=== PATIENT | female | born 1995 | race Caucasian/White ===

== ENCOUNTER 2022-10-08 13:15 | Emergency (ER) | payer BC, SELFPAY ==
--- OUTSIDE RECORDS SUMMARY | 2022-10-08 13:20 | XMS REPORT | Continuity of Care Document ---
:1995 Author Organization [facility] t Address [address] [place] [address] Care Team Providers Name Role Phone PCP, PATIENT DOES NOT HAVE A Primary Care Physician Unavaila ANA Griggs Attending Clinician Unavailable JERRY ALEMAN Attending Clinician Unavailable Jerry Aburto Attending Clinician PHAN CHRISTIANSEN Attending Clinician Unavailable Phan Ba Attending Clinician Adina Dupree MD Attending Clinician Lab, [facility] Pob I Attending Clinician Unavailable Mary Aguilera Attending Clinician Priscila Jackson MD Attending Clinician Wanda Mcmillan PA-C Attending Clinician WANDA MCMILLAN Attending Clinician Unavailable JERRY ALEMAN Admitting Clinician Unavailable Problems Condition Condition Condition Status Onset Resolution Last Treating Co mments Source Name Details Category Date Date Treatment Clinician Date Obesity Obesity Disease Active Univers (BMI (BMI 1-24 ity of 30-39.9) 30-39.9) 00:00: [place] 00 Medical Branch High risk High risk Disease Active Uni vers 6-22 ity of due to due to 00:00: [place] smoking, smoking, 00 Medica l antepartum antepartum Br anch History of History of Disease Active U nivers breast breast 6-22 ity of abscess abscess 00:00: [place] 00 Medical Branch Breast Breast Disease Active 2016-04 Univers abscess of abscess of 0-07 it y of female female 00:00: 00 Medical Branch Left Left Disease Active Univers breast breast 9-14 ity of abscess abscess 00:00: [place] 00 Medical Branch Other Other Disease Active Univers general general 6-15 ity of counseling [place] advice and advice 00 Me dical for for Branch contracept contracept angelica angelica management management Lump or Lump or Disease Active Overview: Univ ers mass in mass in 08 Formattin ity o f breast breast 00:00: g of this note Medical might be Branch different from the original. 2 benign cysts noted on 09/29/16 usg Breast Breast Disease Active Univers pain pain 2-03 ity of 00:00: [place] 00 Medical [place] Irregular Irregular Disease Active Uni vers menstrual menstrual 8-02 ity of cycle cycle 00:00: [facility] Allergies, Adverse Reactions, Alerts Allergy Allergy Status Severity Reaction(s) Onset Inactive Treating Comm ents Source Name Type Date Date Clinician NO KNOWN Drug Active Univers ALLERGIE Class ity of S [facility] Social History Social Habit Start Date Stop Date Quantity Comments Source History SDOH University o f Alcohol Frequency [facility] ed[facility] Branch History SDOH University o f Alcohol Std [place] Medical Drinks Branch History SDOH University o f Alcohol Binge [place] Medic al Branch History of Occasional University of tobacco use tobacco smoker [place] Med ical Branch Exposure to 2021-12-22 2022-01-01 Not sure University of SARS-CoV-2 00:00:00 15:34:00 [facility] (event) Branch Alcohol intake 2022-01-01 2022-01-01 0 /d University of 00:00:00 00:00:00 [facility] Tobacco Comment 2017-09-09 2017-09-09 Vape Universit y of 00:00:00 00:00:00 [facility] Tobacco use and 2017-09-09 2017-09-09 Smokeless tobacco Un iversity of exposure 00:00:00 00:00:00 non-user [facility] Alcohol Comment 2016-09-15 2016-09-15 social drinker Unive rsity of 00:00:00 00:00:00 [facility] Sex [birth year] At [birth year] LISA Hernandez 00:00:00 00:00:00 Medical Center Smoking Status Start Date Stop Date Source Occasional tobacco smoker 2017-09-09 00:00:00 Un iversity of [facility] Medications Ordered Filled Start Stop Current Ordering Indication Dosage Frequency Signature Comments Components Source Medication Medication Date Date Medication? Clinician (SIG) Name Name iopamidol 2021- No [id number] 70mL 70 mL, Un tisha (ISOVUE 01-01 Intravenou ity o f 370-500 mL) 22:30: 21:31 s, ONCE, 1 [place] injection 00 :00 dose, On Medica l 70 mL Fri Branch 01/01/22 at 1730, Routine pantoprazol No 40mg 40 mg, Uni vers e 05-10 Slow IV ity of (PROTONIX) 02:15: 01:18 Push, [place] injection 00 :00 ONCE, 1 Medical 40 mg dose, On Branch 05/09/21 at 2015 maalox:diph No 15mL 15 mL, Uni vers enhydrAMINE 05-10 Oral, ity of :lidocaine 01:00: 00:46 ONCE, 1 [place] as 2 % viscous 00 :00 dose, On Medi bailey 1:1:1 05/09/21 Branch (FIRST-MOUT at 1900, HWASH BLM) Routine oral suspension 15 mL ketorolac 2021- No 30mg 30 mg, Unive rs (TORADOL) 05-10 Slow IV ity of injection 01:00: 00:45 Push, [place] 30 mg 00 :00 ONCE, 1 Medical dose, On Branch 05/09/21 at 1900, CLAIR NaCl 0.9% 2021- No 1000mL at 999 Uni vers (NS) bolus 05-09-06 mL/hr, ity of infusion 23:45: 01:25 1,000 mL, Eliazar as 1,000 mL 00 :00 IV Medical Infusion, Branch ONCE, 1 dose, On 05/09/21 at 1745, CLAIR pantoprazol Yes [id number] 40mg Take 1 U nivers e 40 mg EC 2-05 tablet by ity of tablet 00:00: mouth [place] 00 daily. Medical Branch pantoprazol Yes [id number] 40mg Take 1 U nivers e 40 mg EC 2-05 tablet by ity of tablet 00:00: mouth [place] 00 daily. Medical Branch 2019-0 Yes Take by Univer s VIT 2-20 mouth. ity of CALC,IRON,F 17:11: [place] [id number] Medical ( Branch VITAMIN ORAL) aspirin/bob 0 Yes Take by Uni vers icylamide/c 2-20 mouth. ity of affeine (BC 17:11: [place] HEADACHE 54 Medical POWDER Branch ORAL) 0 Yes Take by Univer s VIT 2-20 mouth. ity of CALC,IRON,F 17:11: [place] [address] Medical ( Branch VITAMIN ORAL) aspirin/bob 0 Yes Take by Uni vers icylamide/c 2-20 mouth. ity of affeine (BC 17:11: [place] HEADACHE 54 Medical POWDER Branch ORAL) Yes Take by Univer s VIT 2-20 mouth. ity of CALC,IRON,F 17:11: [place] [address] Medical ( Branch VITAMIN ORAL) aspirin/bob 0 Yes Take by Uni vers icylamide/c 2-20 mouth. ity of affeine (BC 17:11: [place] HEADACHE 54 Medical POWDER Branch ORAL) 0 Yes Take by Univer s VIT 2-20 mouth. ity of CALC,IRON,F 17:11: [place] [address] Medical ( Branch VITAMIN ORAL) aspirin/bob 0 Yes Take by Uni vers icylamide/c 2-20 mouth. ity of affeine (BC 17:11: [place] HEADACHE 54 Medical POWDER Branch ORAL) [id number] Yes Take by Univer s VIT 2-20 mouth. ity of CALC,IRON,F 17:11: [place] [address] Medical ( Branch VITAMIN ORAL) aspirin/bob 2018-0 Yes Take by Uni vers icylamide/c 2-20 mouth. ity of affeine (BC 17:11: [place] HEADACHE 54 Medical POWDER Branch ORAL) [id number] Yes Take by Univer s VIT 2-20 mouth. ity of CALC,IRON,F 11:11: [place] [address] Medical ( Branch VITAMIN ORAL) aspirin/bob 2019-0 Yes Take by Uni vers icylamide/c 2-20 mouth. ity of affeine (BC 11:11: [place] HEADACHE 54 Medical POWDER Branch ORAL) 2019-0 Yes Take by Univer s VIT 2-20 mouth. ity of CALC,IRON,F 11:11: [place] OLIC 54 Medical ( Branch VITAMIN ORAL) aspirin/bob 2019-0 Yes Take by Uni vers icylamide/c 2-20 mouth. ity of affeine (BC 11:11: [place] HEADACHE 54 Medical POWDER Branch ORAL) ferrous 2019- Yes [id number] 325mg Take 1 Uni vers sulfate 325 1-26 tablet by ity of mg (65 mg 00:00: mouth 2 [place] iron) 00 (two) Medical tablet times Branch daily. ibuprofen Yes [id number] 600mg Take 1 U nivers 600 mg 1-26 tablet by ity of tablet 00:00: mouth [place] 00 every 6 Medical (six) Branch hours as needed for Pain (scale 1-3) or Pain (scale 4-6) (Pain). Take with food or milk. ferrous Yes [id number] 325mg Take 1 Uni vers sulfate 325 1-26 tablet by ity of mg (65 mg 00:00: mouth 2 [place] iron) 00 (two) Medical tablet times Branch daily. ibuprofen 0 Yes [id number] 600mg Take 1 U nivers 600 mg 1-26 tablet by ity of tablet 00:00: mouth [place] 00 every 6 Medical (six) Branch hours as needed for Pain (scale 1-3) or Pain (scale 4-6) (Pain). Take with food or milk. ferrous 2018-0 Yes [id number] 325mg Take 1 Uni vers sulfate 325 1-26 tablet by ity of mg (65 mg 00:00: mouth 2 [place] iron) 00 (two) Medical tablet times Branch daily. ibuprofen 0 Yes [id number] 600mg Take 1 U nivers 600 mg 1-26 tablet by ity of tablet 00:00: mouth [place] 00 every 6 Medical (six) Branch hours as needed for Pain (scale 1-3) or Pain (scale 4-6) (Pain). Take with food or milk. ferrous Yes [id number] 325mg Take 1 Uni vers sulfate 325 1-26 tablet by ity of mg (65 mg 00:00: mouth 2 [place] iron) 00 (two) Medical tablet times Branch daily. ibuprofen Yes [id number] 600mg Take 1 U nivers 600 mg 1-26 tablet by ity of tablet 00:00: mouth [place] 00 every 6 Medical (six) Branch hours as needed for Pain (scale 1-3) or Pain (scale 4-6) (Pain). Take with food or milk. ferrous Yes [id number] 325mg Take 1 Uni vers sulfate 325 1-26 tablet by ity of mg (65 mg 00:00: mouth 2 [place] iron) 00 (two) Medical tablet times Branch daily. ibuprofen Yes [id number] 600mg Take 1 U nivers 600 mg 1-26 tablet by ity of tablet 00:00: mouth [place] 00 every 6 Medical (six) Branch hours as needed for Pain (scale 1-3) or Pain (scale 4-6) (Pain). Take with food or milk. ferrous Yes [id number] 325mg Take 1 Uni vers sulfate 325 1-26 tablet by ity of mg (65 mg 00:00: mouth 2 [place] iron) 00 (two) Medical tablet times Branch daily. ibuprofen Yes [id number] 600mg Take 1 U nivers 600 mg 1-26 tablet by ity of tablet 00:00: mouth [place] 00 every 6 Medical (six) Branch hours as needed for Pain (scale 1-3) or Pain (scale 4-6) (Pain). Take with food or milk. ferrous Yes [id number] 325mg Take 1 Uni vers sulfate 325 1-26 tablet by ity of mg (65 mg 00:00: mouth 2 [place] iron) 00 (two) Medical tablet times Branch daily. ibuprofen Yes [id number] 600mg Take 1 U nivers 600 mg 1-26 tablet by ity of tablet 00:00: mouth [place] 00 every 6 Medical (six) Branch hours as needed for Pain (scale 1-3) or Pain (scale 4-6) (Pain). Take with food or milk. Immunizations Ordered Filled Immunization Date Status Comments [facility] e Immunization Name Name Covid-19 Vaccine 2020-06-[address] [facility] MRNA (PF) 12yr+ 00:00:00 Medical C enter (Pfizer/cottonTracks)(I [id number]) Covid-19 Vaccine 2020-05-[address] [facility] MRNA (PF) 12yr+ 00:00:00 Medical C enter (Pfizer/BioNTech)(I [id number]) TDAP 2018-02-20 Completed University of 00:00:00 [place] [facility] [place] TDAP 2018-02-20 Completed University of 00:00:00 [place] [facility] [place] TDAP 2018-02-20 Completed University of 00:00:00 [place] [facility] [place] TDAP 2018-02-20 Completed University of 00:00:00 [place] [facility] [place] TDAP 2018-02-20 Completed University of 00:00:00 [place] [facility] [place] TDAP 2018-02-20 Completed University of 00:00:00 [facility] TDAP 2018-02-20 Completed University of 00:00:00 [facility] Influenza Virus 2018-01-25 Completed Universit y of Vaccine Quad .5 mL 00:00:[address] [facility] 6+ MO Branch Influenza Virus 2018-01-25 Completed Universit y of Vaccine Quad .5 mL 00:00:[address] [facility] 6+ MO Branch Influenza Virus 2018-01-25 Completed Universit y of Vaccine Quad .5 mL 00:00:[address] [facility] 6+ MO Branch Influenza Virus 2018-01-25 Completed Universit y of Vaccine Quad .5 mL 00:00:00 [place] [facility] 6+ MO Branch Influenza Virus 2018-01-25 Completed Universit y of Vaccine Quad .5 mL 00:00:[address] [facility] 6+ MO Branch Influenza Virus 2018-01-25 Completed Universit y of Vaccine Quad .5 mL 00:00:[address] [facility] 6+ MO Branch Influenza Virus 2018-01-25 Completed Universit y of Vaccine Quad .5 mL 00:00:[address] [facility] 6+ MO Branch HPV 2014-10-30 Completed University of 00:00:00 [facility] TDAP 2014-10-30 Completed University of 00:00:00 [facility] HPV 2014-10-30 Completed University of 00:00:00 [facility] TDAP 2014-10-30 Completed University of 00:00:00 [facility] HPV 2014-10-30 Completed University of 00:00:00 [facility] TDAP 2014-10-30 Completed University of 00:00:00 [facility] HPV 2014-10-30 Completed University of 00:00:00 [facility] TDAP 2014-10-30 Completed University of 00:00:00 [facility] HPV 2014-10-30 Completed University of 00:00:00 [place] [facility] TDAP 2014-10-30 Completed University of 00:00:00 [place] [facility] HPV 2014-10-30 Completed University of 00:00:00 [place] [facility] TDAP 2014-10-30 Completed University of 00:00:00 [place] [facility] HPV 2014-10-30 Completed University of 00:00:00 [place] [facility] TDAP 2014-10-30 Completed University of 00:00:00 [place] [facility] Td 2003-12-05 Completed University of 00:00:00 [place] [facility] Td 2003-12-05 Completed University of 00:00:00 [place] [facility] Td 2003-12-05 Completed University of 00:00:00 [place] [facility] Td 2003-12-05 Completed University of 00:00:00 [place] [facility] Td 2003-12-05 Completed University of 00:00:00 [place] [facility] Td 2003-12-05 Completed University of 00:00:00 [place] [facility] Td 2003-12-05 Completed University of 00:00:00 [facility] Vital Signs Vital Name Observation Time Observation Value Comments Source Heart rate 2022-01-01 22:49:00 113 /min [facility] Respiratory rate 2022-01-01 22:49:00 27 /min [facility] Oxygen saturation in 2022-01-01 22:49:00 100 /min [facility] Arterial blood by [facility] Pulse oximetry Branch Systolic blood 2022-01-01 22:31:40 118 mm[Hg] Univer sity of pressure [facility] Diastolic blood 2022-01-01 22:31:40 86 mm[Hg] Unive rsity [facility] Body temperature 2022-01-01 21:11:32 36.5 [facility] Body weight 2022-01-01 20:39:00 62.143 kg [facility] BMI 2022-01-01 20:39:00 26.76 kg/m2 [facility] Systolic blood 2021-05-10 00:05:00 118 mm[Hg] Univer sity of pressure [facility] Diastolic blood 2021-05-10 00:05:00 89 mm[Hg] Unive rsity of [facility] Heart rate 2021-05-10 00:05:00 89 /min Universi ty of [facility] Respiratory rate 2021-05-10 00:05:00 18 /min [facility] ersity of [facility] Oxygen saturation in 2021-05-10 00:05:00 99 /min University of Arterial blood by [facility] Pulse oximetry Branch Body temperature 2021-05-09 22:37:00 36.83 Marly [facility] Body weight 2021-05-09 22:37:00 62.143 kg Universi ty [facility] BMI 2021-05-09 22:37:00 26.76 kg/m2 Universi ty [facility] Systolic blood 2020-10-11 05:15:00 118 mm[Hg] Univer sity of pressure [facility] Diastolic blood 2020-10-11 05:15:00 81 mm[Hg] Unive rsity of pressure [facility] Heart rate 2020-10-11 05:15:00 100 /min [facility] [place] [facility] [place] [facility] Respiratory rate 2020-10-11 05:15:00 17 /min [facility] Oxygen saturation in 2020-10-11 05:15:00 100 /min University of Arterial blood by [facility] Pulse oximetry Branch Body temperature 2020-10-11 03:51:00 37.17 Marly [facility] Body height 2020-10-11 03:51:00 152.4 cm [facility] [place] [facility] [place] [facility] Body weight 2020-10-11 03:51:00 68.493 kg [facility] BMI 2020-10-11 03:51:00 29.49 kg/m2 [facility] Procedures Procedure Date / Time Performing Clinician Source Performed CT CHEST PULMONARY 2022-01-01 21:35:35 Jerry Aleman [facility] ANGIOGRAM Medical Branch CONSENT/REFUSAL FOR 2022-01-01 21:22:40 Doctor Unassigned, No Un [facility] DIAGNOSIS AND TREATMENT Name Medical Branch POCT TEST 2022-01-01 21:12:00 Jerry Aleman [facility] TROPONIN I 2022-01-01 21:08:00 Jerry Aleman [place] o f [facility] THYROID STIMULATING 2022-01-01 21:08:00 Jerry Aleman [facility] HORMONE [facility] COMP. METABOLIC PANEL 2022-01-01 21:08:00 Jerry Aleman [facility] ([id number]) [facility] URINE DRUG (IMMUNOASSAY) 2022-01-01 21:08:00 Jerry Aleman [facility] SCREEN CBC WITH DIFF 2022-01-01 21:08:00 Jerry Aleman [facility] XR CHEST 1 VW 2022-01-01 20:59:05 Jerry Aleman [facility] LIPASE 2021-05-09 23:12:00 Phan Christiansen [facility] COMP. METABOLIC PANEL 2021-05-09 23:12:00 Phan Christiansen [facility] ([id number]) [facility] CBC WITH DIFF 2021-05-09 23:12:00 Phan Christiansen [facility] URINALYSIS 2021-05-09 23:12:00 Phan Christiansen [facility] POCT TEST 2021-05-09 22:57:00 Phan Christiansen [facility] CONSENT/REFUSAL FOR 2021-05-09 22:33:03 Doctor Unassigned, No Un [facility] DIAGNOSIS AND TREATMENT Name Medical Branch XR CHEST 1 VW 2020-10-11 04:55:11 Adina Dupree [facility] POCT TEST 2020-10-11 04:44:00 Adina Dupree [facility] MAGNESIUM 2020-10-11 04:43:00 Adina Dupree [facility] TROPONIN I 2020-10-11 04:43:00 Adina Dupree [facility] COMP. METABOLIC PANEL 2020-10-11 04:43:00 Adina Dupree [facility] ([id number]) [facility] CBC WITH DIFF 2020-10-11 04:43:00 Adina Dupree [facility] D-DIMER 2020-10-11 04:43:00 Adina Dupree [facility] NOTICE OF PRIVACY 2020-10-11 03:49:08 Doctor Unassigned, No [facility] Name Medical Branch CONSENT/REFUSAL FOR 2020-10-11 03:44:05 [facility] Name [facility] Plan of Care Planned Activity Planned Date Details Comments Source Future Scheduled 2028-02-21 DTAP/TDAP/TD VACCINES [facility] Test 00:00:00 (4 - Td or Tdap) Medical Brisa ter [code = DTAP/TDAP/TD VACCINES (4 - Td or Tdap)] Future Scheduled 2022-12-[address] [facility] Test 00:00:00 (#1) [code = [facility] Influenza Vaccine (#1)] Future Scheduled 2022-04-[address] [facility] Test 00:00:00 (12+) [code = [facility] DEPRESSION SCREENING (12+)] Future Scheduled 2020-08-14 COVID-19 VACCINE (3 - [facility] Test 00:00:00 Booster for Pfizer Medical C enter series) [code = COVID-19 VACCINE (3 - Booster for Pfizer series)] Future Scheduled 2016-07-[address] [facility] Test 00:00:00 malignant neoplasm of Medica l Center cervix (procedure) [code = 702112208] Future Scheduled 2013-07-17 HEPATITIS C SCREENING [facility] Test 00:00:00 [code = HEPATITIS C Medical Center SCREENING] Future Scheduled [address] [facility] Test 00:00:00 Counseling and Medical Cente r Screening (12+) [code = Tobacco Cessation Counseling and Screening (12+)] Encounters Start End Encounter Admission Attending Care Care Encounter Source Date/Time Date/Time Type Type Clinicians Facility Department ID 2021-02-02 Emergency [facility] [id number] Univers 07:14:23 [facility] 2022-03-25 2022-03-25 Outpatient R SHELLIE [facility] [id number] Univers 15:30:00 15:30:00 ANA [facility] 2022-01-01 2022-01-01 Emergency X LOVE [facility] ERT [id number] Univers 15:38:00 18:23:00 JERRY ity [facility] 2022-01-01 2022-01-01 Emergency Love, [facility] [id number] Univers 15:38:00 18:23:00 Jerry [place] [id number] i ty [facility] [id number] [facility] [id number] [address] 2021-05-09 2021-05-09 Emergency X PHAN CHRISTIANSEN [facility] ERT [id number] Univers 16:43:00 19:30:00 ity of [facility] 2021-05-09 2021-05-09 Emergency Phan Christiansen [facility] [id number] Univers 16:43:00 19:30:00 T [place] [id number] i ty of [place] [id number] [place] [facility] [id number] [address] 2020-10-10 2020-10-11 Emergency Sandranavarrocole, [facility] [id number] Univers 22:59:00 01:15:00 Adina Candelario [id number] ity of [place] [id number] [facility] [id number] [address] 2020-06-19 2020-06-19 Outpatient EL [facility] [id number] [facility] 00:00:00 00:00:00 2020-05-29 2020-05-29 Outpatient [facility] [id number] [facility] 00:00:00 00:00:00 2019-10-16 2019-10-16 Laboratory Lab, Adc Fam Pob I [facility] [id number] Univers 07:23:45 07:27:17 Only Mary Rodriguez [id number] ity of [place] [id number] Eliazar as Professio [id number] [place] [address] Branch [address] 2019-10-16 2019-10-16 Outpatient R [facility] [id number] Univers 07:20:00 07:20:00 ity [facility] 2019-09-25 2019-09-25 Telephone JacksonPriscila [id number] Univers 00:00:00 00:00:00 Rahul FISHMAN [id number] it y of [facility] [id number] [place] as [id number] [address] 2019-09-24 2019-09-24 Laboratory Lab, Adc Fam Pob I [facility] 1.2. [id number] Univers 15:01:31 15:21:31 Only Wanda Mcmillan [facility] [id number] ity [facility] [id number] Eliazar as Professio [phone] Ia dical [facility] [address] [place] [address] 2019-09-24 2019-09-24 Outpatient R HASEEB [facility] [id number] Univers 15:20:00 15:20:00 WANDA [facility] Results Test Description Test Time Test Comments Results Result Comments Source THYROID STIMULATING HORMONE 2022-01-01 22:10:10 Test Item Value Reference Range Interpretation Comme nts TSH (test code = 4822281718) See_Comment [Automated message] The system which generated this result transmitted ref erence range: 0.45 - 4.70 mIU/L. T he reference range was not used to interpret this result as ever[place] l/abnormal. Lab Interpretation (test code = Normal 78091-1) [id number]28 Test Item Value Reference Interpretation Comments Range TROPONIN I (test See_Comment [Automated code = [id number]) message] The system which generated this result transmitted reference range : <=0.034. The reference range was not used to interpret this result as normal/abnormal . RUTHIE (test code = Reference (Normal) RUTHIE) Range (defined by the 99th percentile reference limit): <= 0.034 ng/mL Note: Cardiac troponin begins to rise 3-4 hours after the onset of ischemia. Repeat in 4-6 hours if the sample was drawn within 3-4 hours of the onset of the symptom and found normal. Diagnosis of myocardial injury is made with acute changes in cTn concentrations with at least one serial sample above the 99th percentile upper reference limit (URL), taken together with the patient's clinical presentation. Biotin has been reported to cause a negative bias, interpret results relative to patient's use of biotin. Lab Interpretation Normal (test code = 50949-1) [facility]. METABOLIC PANEL ([id number])2022-01-01 21:39:44 Test Item Value Reference Range Interpretation Comments NA (test code = 143 mmol/L 135-145 3668564356) K (test code = 4.0 mmol/L 3.5-5 6036085247) CL (test code = 105 mmol/L 98-108 1619820402) CO2 TOTAL (test code = 24 mmol/L 23-31 9674773123) AGAP (test code = 2-16 3618415145) BUN (test code = 6 mg/dL 7-23 L 5791863662) GLUCOSE (test code = 106 mg/dL 70-110 0253414547) CREATININE (test code = 0.65 mg/dL 0.5-1.04 9236996812) TOTAL BILI (test code = 0.5 mg/dL 0.1-1.9 0210166193) CALCIUM (test code = 9.8 mg/dL 8.6-10.6 5073763275) T PROTEIN (test code = 7.7 g/dL 6.3-8.2 4578771718) ALBUMIN (test code = 4.8 g/dL 3.5-5 4214775725) ALK PHOS (test code = 90 U/L 34-122 3472947482) ALTv (test code = 11 U/L 5-35 1742-6) AST(SGOT) (test code = 25 U/L 13-40 1217593537) eGFR (test code = mL/min/1.73m2 3172932199) RUTHIE (test code = RUTHIE) Association of Glomerular Filtration Rate (GFR) and Staging of Kidney Disease* + --+ --+ ------+| GFR (mL/min/1.73 m2) ?| With Kidney Damage ?| ?Without Kidney Damage+ --------+ --------+ +| ?>90 ?| ?Stage one ?| ? Normal ?+ ---+ ---+ -------+| ?60-89 ?| ?Stage two ?| ? Decreased GFR ? + --+ --+ ------+| ?30-59 ?| ?Stage three ?| ? Stage three ? + --+ --+ ------+| ?15-29 ?| ?Stage four ? | ? Stage four ?+ ---+ ---+ -------+| ?<15 (or dialysis) ? ?| ?Stage five ? | ? Stage five ?+ ---+ ---+ -------+ *Each stage assumes the associated GFR level has been in effect for at least three months. ?Stages 1 to 5, with or without kidney disease, indicate chronic kidney disease. Notes: Determination of stages one and two (with eGFR >59mL/min/1.73 m2) requires estimation of kidney damage for at least three months as defined by structural or functional abnormalities of the kidney, manifested by either:Pathological abnormalities or Markers of kidney damage (including abnormalities in the composition of the blood or urine or abnormalities in imaging tests). Lab Interpretation Abnormal (test code = 52511-3) [facility] WITH [id number] 21:29:24 Test Item Value Reference Range Interpretation Comments WBC (test code = See_Comment [Automated message] 6690-2) The system [employer] generated this result transmitted ref erence range: 4.30 - 1 1.10 10*3/?L. The re ference range was not u sed to interpret this result as normal/abnor mal. RBC (test code = See_Comment [Automated message] 789-8) The system [employer] generated this result transmitted ref erence range: 3.93 - 5 .25 10*6/?L. The re ference range was not u sed to interpret this result as normal/abnor mal. HGB (test code = 13.4 g/dL 11.6-15 718-7) HCT (test code = 40.3 % 35.7-45.2 4544-3) MCV (test code = 94.6 fL 80.6-95.5 787-2) MCH (test code = 31.5 pg 25.9-32.8 785-6) MCHC (test code = 33.3 g/dL 31.6-35.1 786-4) RDW-SD (test code 47.8 fL 39-49.9 = 34789-6) RDW-CV (test code 14.2 % 12-15.5 = 788-0) PLT (test code = See_Comment [Automated message] 777-3) The system whic h generated this result transmitted ref erence range: 166 - 35 8 10*3/?L. The re ference range was not u sed to interpret this result as normal/abnor mal. MPV (test code = 10.2 fL 9.5-12.9 79099-5) NRBC/100 WBC (test See_Comment [Automat ed message] code = 8073274089) The syste m which generated this result transmitted ref erence range: 0.0 - 10 .0 /100 WBCs. The refer ence range was not u sed to interpret this result as normal/abnor mal. NRBC x10^3 (test See_Comment [Automated message] code = 6085694901) The syste m which generated this result transmitted ref erence range: 10*3/?L. The reference range was not used to interpr et this result as normal/abnormal . GRAN MAT (NEUT) % 69.2 % (test code = 770-8) IMM GRAN % (test 0.80 % code = 8808256325) LYMPH % (test code 21.4 % = 736-9) MONO % (test code 7.5 % = 5905-5) EOS % (test code = 0.6 % 713-8) BASO % (test code 0.5 % = 706-2) GRAN MAT 5.37 10*3/uL 1.88-7.09 x10^3(ANC) (test code = 8715080857) IMM GRAN x10^3 0.06 10*3/uL 0-0.06 (test code = 6276379136) LYMPH x10^3 (test 1.66 10*3/uL 1.32-3.29 code = 731-0) MONO x10^3 (test 0.58 10*3/uL 0.33-0.92 code = 742-7) EOS x10^3 (test 0.05 10*3/uL 0.03-0.39 code = 711-2) BASO x10^3 (test 0.04 10*3/uL 0.01-0.07 code = 704-7[id number] Test Item Value Reference Range Interpretation Comments POCT PREG (test code = 1605) negative On board controls acceptable with present C Line (test code = 3574) POCT PREG LOT # (test code = 3575) [id number] POCT PREG TEST DATE (test 04/03/2023 code = 3576) Lab Interpretation (test code = Normal 28599-0) [facility]. METABOLIC PANEL (02112)2021-05-09 23:48:33 Test Item Value Reference Range Interpretation Comments NA (test code = 142 mmol/L 135-145 0922066774) K (test code = 4.0 mmol/L 3.5-5.0 4568306352) CL (test code = 105 mmol/L 98-108 8858127090) CO2 TOTAL (test code 29 mmol/L 23-31 = 6852518274) AGAP (test code = 2-16 2576560393) BUN (test code = 12 mg/dL 7-23 7871197433) GLUCOSE (test code = 80 mg/dL 70-110 6875023475) CREATININE (test code 0.70 mg/dL 0.50-1.04 = 0798711816) TOTAL BILI (test code 0.5 mg/dL 0.1-1.1 = 9115546061) CALCIUM (test code = 9.0 mg/dL 8.6-10.6 0916908708) T PROTEIN (test code 7.2 g/dL 6.3-8.2 = 2955494603) ALBUMIN (test code = 4.5 g/dL 3.5-5.0 7134408148) ALK PHOS (test code = 91 U/L 34-122 8430635617) ALTv (test code = 13 U/L 5-35 1742-6) AST(SGOT) (test code 31 U/L 13-40 = 1893821141) eGFR (test code = mL/min/1.73m2 8985771596) RUTHIE (test code = RUTHIE) Association of Glomerular Filtration Rate (GFR) and Staging of Kidney Disease* + + +- +| GFR (mL/min/1.73 m2) ?| With Kidney Damage ?| ?Without Kidney Damage+ ------+ ----+ ------+| ?>90 ?| ?Stage one ?| ? Normal ?+ -+ + -+| ?60-89 ?| ?Stage two ?| ? Decreased GFR ? + + +- +| ?30-59 ?| ?Stage three ?| ? Stage three ? + + +- +| ?15-29 ?| ?Stage four ? | ? Stage four ?+ -+ + -+| ?<15 (or dialysis) ? ?| ?Stage five ? | ? Stage five ?+ -+ + -+ *Each stage assumes the associated GFR level has been in effect for at least three months. ?Stages 1 to 5, with or without kidney disease, indicate chronic kidney disease. Notes: Determination of stages one and two (with eGFR >59mL/min/1.73 m2) requires estimation of kidney damage for at least three months as defined by structural or functional abnormalities of the kidney, manifested by either:Pathological abnormalities or Markers of kidney damage (including abnormalities in the composition of the blood or urine or abnormalities in imaging tests). [facility] Test Item Value Reference Range Interpretation Comments LIPASE (test code = 6323628633) 76 U/L 0-220 Lab Interpretation (test code = Normal 47186-6) [facility] WITH [id number] 23:37:11 Test Item Value Reference Range Interpretation Comments WBC (test code = See_Comment [Automated message] 6690-2) The system [employer] generated this result transmitted ref erence range: 4.30 - 1 1.10 10*3/?L. The re ference range was not u sed to interpret this result as normal/abnor mal. RBC (test code = See_Comment [Automated message] 789-8) The system [employer] generated this result transmitted ref erence range: 3.93 - 5 .25 10*6/?L. The re ference range was not u sed to interpret this result as normal/abnor mal. HGB (test code = 13.1 g/dL 11.6-15.0 718-7) HCT (test code = 40.1 % 35.7-45.2 4544-3) MCV (test code = 87.2 fL 80.6-95.5 787-2) MCH (test code = 28.5 pg 25.9-32.8 785-6) MCHC (test code = 32.7 g/dL 31.6-35.1 786-4) RDW-SD (test code 40.0 fL 39.0-49.9 = 98499-4) RDW-CV (test code 12.5 % 12.0-15.5 = 788-0) PLT (test code = See_Comment [Automated message] 777-3) The system whic h generated this result transmitted ref erence range: 166 - 35 8 10*3/?L. The re ference range was not u sed to interpret this result as normal/abnor mal. MPV (test code = 10.4 fL 9.5-12.9 98074-4) NRBC/100 WBC (test See_Comment [Automat ed message] code = 0640000918) The syste m which generated this result transmitted ref erence range: 0.0 - 10 .0 /100 WBCs. The refer ence range was not u sed to interpret this result as normal/abnor mal. NRBC x10^3 (test <0.01 See_Comment [Automated message] code = 5893765518) The syste m which generated this result transmitted ref erence range: 10*3/?L. The reference range was not used to interpr et this result as normal/abnormal . GRAN MAT (NEUT) % 62.7 % (test code = 770-8) IMM GRAN % (test 0.50 % code = 7730536363) LYMPH % (test code 25.6 % = 736-9) MONO % (test code 9.6 % = 5905-5) EOS % (test code = 0.9 % 713-8) BASO % (test code 0.7 % = 706-2) GRAN MAT 4.69 10*3/uL 1.88-7.09 x10^3(ANC) (test code = 9781165203) IMM GRAN x10^3 0.04 10*3/uL 0.00-0.06 (test code = 8411121928) LYMPH x10^3 (test 1.92 10*3/uL 1.32-3.29 code = 731-0) MONO x10^3 (test 0.72 10*3/uL 0.33-0.92 code = 742-7) EOS x10^3 (test 0.07 10*3/uL 0.03-0.39 code = 711-2) BASO x10^3 (test 0.05 10*3/uL 0.01-0.07 code = 704-7) [id number] 22:57:00 Test Item Value Reference Range Interpretation Comments POCT PREG (test code = 1605) negative On board controls acceptable with present C Line (test code = 3574) POCT PREG LOT # (test code = 3575) [id number] POCT PREG TEST DATE (test 06/01/2022 code = 3576) Lab Interpretation (test code = Normal 31926-4) [facility][id number] 05:36:17 Test Item Value Reference Interpretation Comments Range D-DIMER (test code = <0.27 See_Comment [Autom ated 8422046183) message] The system which generated this result transmitted reference range : <0.41 ?g/mL (FEU). The reference range was not used to interpret this result as normal/abnormal . RUTHIE (test code = This test may be RUTHIE) used in conjunction with a clinical pretest probability (PTP) assessment model to exclude venous thromboembolism (VTE) in patients suspected of deep venous thrombosis (DVT) and pulmonary embolism (PE) A D-Dimer value less than 0.50 ?g/ml (FEU) has a negative predicative value of 96 to 100% (95% CI)and 97 to 100% (95% CI) as an aid in the diagnosis of deep vein thrombosis (DVT) and pulmonary embolism when there is low or moderate pretest probability of PE or DVT. D-Dimer values are expressed in initial fibrinogen equivalent units (FEU)" The assay results should be used with other information, including the clinical context, in forming a diagnosis. Lab Interpretation Normal (test code = 84587-0) [facility] [id number] 05:25:33 Test Item Value Reference Interpretation Comments Range TROPONIN I (test 0.001 ng/mL See_Comment [Automated code = 5102965250) message] The system which generated this result transmitted reference range : <=0.034. The reference range was not used to interpret this result as normal/abnormal . RUTHIE (test code = Reference (Normal) RUTHIE) Range (defined by the 99th percentile reference limit): <= 0.034 ng/mL Note: Cardiac troponin begins to rise 3-4 hours after the onset of ischemia. Repeat in 4-6 hours if the sample was drawn within 3-4 hours of the onset of the symptom and found normal. Diagnosis of myocardial injury is made with acute changes in cTn concentrations with at least one serial sample above the 99th percentile upper reference limit (URL), taken together with the patient's clinical presentation. Biotin has been reported to cause a negative bias, interpret results relative to patient's use of biotin. Lab Interpretation Normal (test code = 51077-5) [facility] 05:14:49 Test Item Value Reference Range Interpretation Comments MAGNESIUM (test code = 3686551723) 1.7 mg/dL 1.7-2.4 Lab Interpretation (test code = Normal 68961-9) [facility] METABOLIC PANEL (47441)2020-10-11 05:14:28 Test Item Value Reference Range Interpretation Comments NA (test code = 138 mmol/L 135-145 3209410970) K (test code = 3.8 mmol/L 3.5-5.0 3627965217) CL (test code = 107 mmol/L 98-108 4690467654) CO2 TOTAL (test code 27 mmol/L 23-31 = 7899208436) AGAP (test code = 2-16 6913877127) BUN (test code = 11 mg/dL 7-23 7254677121) GLUCOSE (test code = 86 mg/dL 70-110 7853366698) CREATININE (test code 0.73 mg/dL 0.50-1.04 = 5443763051) TOTAL BILI (test code 0.5 mg/dL 0.1-1.1 = 2426896000) CALCIUM (test code = 9.2 mg/dL 8.6-10.6 4924455061) T PROTEIN (test code 7.5 g/dL 6.3-8.2 = 4255438749) ALBUMIN (test code = 4.4 g/dL 3.5-5.0 3417113422) ALK PHOS (test code = 64 U/L 34-122 4890661464) ALTv (test code = 13 U/L 5-35 1742-6) AST(SGOT) (test code 29 U/L 13-40 = 3082721728) eGFR (test code = mL/min/1.73m2 4702944094) RUTHIE (test code = RUTHIE) Association of Glomerular Filtration Rate (GFR) and Staging of Kidney Disease* + + +- +| GFR (mL/min/1.73 m2) ?| With Kidney Damage ?| ?Without Kidney Damage+ ------+ ----+ ------+| ?>90 ?| ?Stage one ?| ? Normal ?+ -+ + -+| ?60-89 ?| ?Stage two ?| ? Decreased GFR ? + + +- +| ?30-59 ?| ?Stage three ?| ? Stage three ? + + +- +| ?15-29 ?| ?Stage four ? | ? Stage four ?+ -+ + -+| ?<15 (or dialysis) ? ?| ?Stage five ? | ? Stage five ?+ -+ + -+ *Each stage assumes the associated GFR level has been in effect for at least three months. ?Stages 1 to 5, with or without kidney disease, indicate chronic kidney disease. Notes: Determination of stages one and two (with eGFR >59mL/min/1.73 m2) requires estimation of kidney damage for at least three months as defined by structural or functional abnormalities of the kidney, manifested by either:Pathological abnormalities or Markers of kidney damage (including abnormalities in the composition of the blood or urine or abnormalities in imaging tests). [facility] WITH [id number] 05:10:42 Test Item Value Reference Range Interpretation Comments WBC (test code = See_Comment [Automated message] 6690-2) The system [employer] generated this result transmitted ref erence range: 4.30 - 1 1.10 10*3/?L. The re ference range was not u sed to interpret this result as normal/abnor mal. RBC (test code = See_Comment [Automated message] 789-8) The system [employer] generated this result transmitted ref erence range: 3.93 - 5 .25 10*6/?L. The re ference range was not u sed to interpret this result as normal/abnor mal. HGB (test code = 12.5 g/dL 11.6-15.0 718-7) HCT (test code = 38.5 % 35.7-45.2 4544-3) MCV (test code = 86.7 fL 80.6-95.5 787-2) MCH (test code = 28.2 pg 25.9-32.8 785-6) MCHC (test code = 32.5 g/dL 31.6-35.1 786-4) RDW-SD (test code 41.7 fL 39.0-49.9 = 62597-3) RDW-CV (test code 13.3 % 12.0-15.5 = 788-0) PLT (test code = See_Comment [Automated message] 777-3) The system [employer] generated this result transmitted ref erence range: 166 - 35 8 10*3/?L. The re ference range was not u sed to interpret this result as normal/abnor mal. MPV (test code = 11.5 fL 9.5-12.9 84229-7) NRBC/100 WBC (test See_Comment [Automat ed message] code = 6525588673) The syste [employer] which generated this result transmitted ref erence range: 0.0 - 10 .0 /100 WBCs. The refer ence range was not u sed to interpret this result as normal/abnor mal. NRBC x10^3 (test <0.01 See_Comment [Automated message] code = 2495312909) The syste m which generated this result transmitted ref erence range: 10*3/?L. The reference range was not used to interpr et this result as normal/abnormal . GRAN MAT (NEUT) % 50.6 % (test code = 770-8) IMM GRAN % (test 0.50 % code = 3533980693) LYMPH % (test code 39.9 % = 736-9) MONO % (test code 7.8 % = 5905-5) EOS % (test code = 0.7 % 713-8) BASO % (test code 0.5 % = 706-2) GRAN MAT 2.77 10*3/uL 1.88-7.09 x10^3(ANC) (test code = 9845506611) IMM GRAN x10^3 0.03 10*3/uL 0.00-0.06 (test code = 9286968299) LYMPH x10^3 (test 2.19 10*3/uL 1.32-3.29 code = 731-0) MONO x10^3 (test 0.43 10*3/uL 0.33-0.92 code = 742-7) EOS x10^3 (test 0.04 10*3/uL 0.03-0.39 code = 711-2) BASO x10^3 (test 0.03 10*3/uL 0.01-0.07 code = 704-7) [facility] [id number] 04:44:00 Test Item Value Reference Range Interpretation Comments POCT PREG (test code = 1605) negative On board controls acceptable with positive C Line (test code = 3574) POCT PREG LOT # (test code = 3575) [id number] POCT PREG TEST DATE (test 04-03-2022 code = 3576) Lab Interpretation (test code = Normal 22201-0) [facility]
[2022-10-08 14:19] LABS: Absolute Lymphocytes (CBC) 1.8 K/uL (0.7-4.9); Hematocrit 41.2 % (36.0-45.0); Lymphocytes % 28.8 % (15.3-44.8); MCV 87.7 fL (80-100); MPV 9.3 fL (7.6-11.3)
[2022-10-08 14:36] LABS: BUN Blood Urea Nitrogen 14 mg/dL (7-18); Bicarbonate 29 mEq/L (21-32); Glomerular Filtration Rate 100 ml/min (=/>90); Glucose Level 91 mg/dL (74-106); Magnesium 2.1 mg/dL (1.6-2.4); NT PRO-BNP < 5 pg/mL (<125); Potassium 4.2 mEq/L (3.5-5.1); Sodium Level 140 mEq/L (136-145); Thyroid Stimulating Hormone 0.896 uIU/mL (0.358-3.740); Troponin High Sensitivity < 3.0 pg/mL (<58.9)
--- NOTE | 2022-10-08 14:39 | ER ---
Nurse's Notes [facility] Name: Bernarda Hoang Age: 27 yrs Sex: Female : 1995 Arrival Date: 10/08/2022 Time: 13:15 Bed 13 Private MD: Diagnosis: Palpitations Presentation: 10/08 13:20 Chief complaint: Patient states: Light headed and dizzy for 2-3 days. Coronavirus os screen: Client denies travel out of the [place] in the last 14 days. At this time, the client does not indicate any symptoms associated with coronavirus-19. Ebola Screen: No symptoms or risks identified at this time. 13:20 Method Of Arrival: Ambulatory os 13:27 Initial Sepsis Screen: Does the patient meet any 2 criteria? No. Patient's initial os sepsis screen is negative. Initial Sepsis Screen: Does the patient have a suspected source of infection? No. Patient's initial sepsis screen is negative. Risk Assessment: Do you want to hurt yourself or someone else? Patient reports no desire to harm self or others. Onset of symptoms was October 08, 2022. 13:27 Acuity: WOODY 3 os Triage Assessment: 13:29 General: Appears distressed, uncomfortable, Behavior is cooperative, appropriate for os age, anxious. Pain: Denies pain. Cardiovascular: Rhythm is atrial fibrillation. Respiratory: No deficits noted. GI: No deficits noted. 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 - Social history:: Smoking status: Patient denies any tobacco usage or history of. Screenin:30 [facility] ED Fall Risk Assessment (Adult) Score/Fall Risk Level 0 - 2 = Low Risk. Abuse eh3 screen: Denies threats or abuse. Denies injuries from another. Nutritional screening: No deficits noted. Tuberculosis screening: No symptoms or risk factors identified. Assessment: 13:30 General: Appears in no apparent distress. uncomfortable, Behavior is calm, cooperative, eh3 appropriate for age. Pain: Denies pain. Pain does not radiate. Pain began 2-3 days ago. Neuro: Level of Consciousness is awake, alert, obeys commands, Oriented to person, place, time, situation. Cardiovascular: Capillary refill < 3 seconds Patient's skin is warm and dry. Rhythm is sinus rhythm. Cardiovascular: Reports lightheadedness. Respiratory: Airway is patent Respiratory effort is even, unlabored, Respiratory pattern is regular, symmetrical. GI: Abdomen is round non-distended. Derm: Skin is intact, is healthy with good turgor. Musculoskeletal: Circulation, motion, and sensation intact. 14:30 Reassessment: Patient appears in no apparent distress at this time. Patient and/or eh3 family updated on plan of care and expected duration. Pain level reassessed. Patient is alert, oriented x 3, equal unlabored respirations, skin warm/dry/pink. Vital Signs: 13:27 BP 139 / 62; Pulse 92; Resp 18; Temp 98.5; Pulse Ox 100% on R/A; Weight 69.4 kg; os 14:30 BP 125 / 87; Pulse 92; Resp 18; Pulse Ox 100% on R/A; eh3 ED Course: 13:16 Patient arrived in ED. am2 13:16 Nikky Callejas FNP-C is PHCP. kb 13:16 Avery Sanches MD is Attending Physician. kb 13:23 Samantha Massey, MARIELLA is Primary Nurse. eh3 13:28 Triage completed. os 13:30 Patient has correct armband on for positive identification. Bed in low position. Call eh3 light in reach. Side rails up X2. Client placed on continuous cardiac and pulse oximetry monitoring. NIBP monitoring applied. Door closed. Noise minimized. Lights dimmed. Warm blanket given. 13:30 Arm band placed on. eh3 13:48 Missed attempt(s): 22 gauge in left antecubital area. Bleeding controlled, band aid eh3 applied, catheter tip intact. Patient maintains SpO2 saturation greater than 95% on room air. 13:58 Inserted saline lock: 22 gauge in right antecubital area, using aseptic technique. ll1 Blood collected. 14:41 No provider procedures requiring assistance completed. IV discontinued, intact, eh3 bleeding controlled, No redness/swelling at site. Pressure dressing applied. 14:49 XRAY Chest (1 view) In Process Unspecified. EDMS Administered Medications: No medications were administered Medication: 14:41 VIS not applicable for this client. eh3 Outcome: 14:39 Discharge ordered by MD. rice 14:41 Discharged to home ambulatory. eh3 14:41 Condition: stable 14:41 Discharge instructions given to patient, Instructed on discharge instructions, follow up and referral plans. Demonstrated understanding of instructions, follow-up care. 14:48 Patient left the ED. eh3 Signatures: Dispatcher [employer] EDOR Nikky Callejas, MATH AND SCIENCE DIVISION CHAIR-C MATH AND SCIENCE DIVISION CHAIR-CkConstanza Richardson 2 Dian Coronado RN RN 1 Samantha Massey RN RN eh3 Medina Darling, RN RN os
--- NOTE | 2022-10-08 14:39 | EDPHYS ---
Physician Documentation [facility] Name: Bernarda Hoang Age: 27 yrs Sex: Female : 1995 Arrival Date: 10/08/2022 Time: 13:15 Bed 13 Private MD: ED Physician Avery Sanches HPI: 10/08 14:20 This 27 yrs old Female presents to ER via Ambulatory with complaints of Irregular kb Pulse, fast heart rate. 14:20 The patient presents with a history of heart racing. Context: The symptoms occur with kb anxiety. Onset: The symptoms/episode began/occurred just prior to arrival. Duration: The patient or guardian reports a single episode. Modifying factors: The symptoms are aggravated by nothing. The symptoms are alleviated by nothing. Associated signs and symptoms: Pertinent positives: anxiety, lightheadedness. Severity of symptoms: At their worst the symptoms were mild moderate in the emergency department the symptoms are unchanged. The patient has not experienced similar symptoms in the past. The patient has not recently seen a physician. Pt reports she thought she was having a panic attack, which she has had in the past, but her watch said she was in atrial fibrillation. Pt reports she has had some dizziness over the last 2 days. . 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 - Social history:: Smoking status: Patient denies any tobacco usage or history of. ROS: 14:18 Constitutional: Negative for fever, chills, and weight loss. kb 14:18 Cardiovascular: Positive for palpitations. 14:18 Neuro: Positive for dizziness. 14:18 All other systems are negative. Exam: 14:18 Constitutional: This is a well developed, well nourished patient who is awake, alert, kb and in no acute distress. Head/Face: Normocephalic, atraumatic. ENT: Moist Mucous membranes Cardiovascular: Regular rate and rhythm with a normal S1 and S2. No gallops, murmurs, or rubs. No pulse deficits. Respiratory: Respirations even and unlabored. No increased work of breathing. Talking in full sentences Abdomen/GI: Soft, non-tender. No distention Skin: Warm, dry with normal turgor. Normal color. MS/ Extremity: Pulses equal, no cyanosis. Neurovascular intact. Full, normal range of motion. Neuro: Awake and alert, GCS 15, oriented to person, place, time, and situation. Moves all extremities. Normal gait. 14:18 ECG was reviewed by the Attending Physician. Vital Signs: 13:27 BP 139 / 62; Pulse 92; Resp 18; Temp 98.5; Pulse Ox 100% on R/A; Weight 69.4 kg; os 14:30 BP 125 / 87; Pulse 92; Resp 18; Pulse Ox 100% on R/A; eh3 MDM: 13:16 Patient medically screened. kb 14:19 Data reviewed: vital signs, nurses notes. kb 14:21 Differential diagnosis: arrythmia, dehydration, stress disorder. kb 14:38 Independent interpretation of the following test(s) in the Emergency Department X-Ray: kb My interpretation is chest x-ray normal. Test considered but Not performed: CT: CT chest considered, but DD normal. Counseling: I had a detailed discussion with the patient and/or guardian regarding: the historical points, exam findings, and any diagnostic results supporting the discharge/admit diagnosis, lab results, radiology results, the need for outpatient follow up, a family practitioner, to return to the emergency department if symptoms worsen or persist or if there are any questions or concerns that arise at home. 10/08 13:20 Order name: Basic Metabolic Panel; Complete Time: 14:37 kb 10/08 13:20 Order name: CBC with Diff; Complete Time: 14:33 kb 10/08 13:20 Order name: D-Dimer; Complete Time: 14:22 kb 10/08 13:20 Order name: Magnesium; Complete Time: 14:37 kb 10/08 13:20 Order name: NT PRO-BNP; Complete Time: 14:37 kb 10/08 13:20 Order name: Troponin HS; Complete Time: 14:37 kb 10/08 13:20 Order name: TSH; Complete Time: 14:37 kb 10/08 13:20 Order name: XRAY Chest (1 view) kb 10/08 13:20 Order name: EKG; Complete Time: 13:35 kb 10/08 13:20 Order name: Cardiac monitoring; Complete Time: 13:31 kb 10/08 13:20 Order name: EKG - Nurse/Tech; Complete Time: 13:31 kb 10/08 13:20 Order name: IV Saline Lock; Complete Time: 13:56 kb 10/08 13:20 Order name: Labs collected and sent; Complete Time: 13:56 kb 10/08 13:20 Order name: O2 Per Protocol; Complete Time: 13:31 kb 10/08 13:20 Order name: O2 Sat Monitoring; Complete Time: 13:31 kb EC:18 Rate is 101 beats/min. QRS Lyle is Normal. OR interval is normal at 172 msec. QRS kb interval is normal at 90 msec. QT interval is normal at 440 msec. Administered Medications: No medications were administered Disposition: 17:11 Co-signature as Attending Physician, Avery Sanches MD I reviewed the patient's care rn provided by the Advanced Practice Provider and agree with the diagnosis and treatment plan. Disposition Summary: 10/08/22 14:39 Discharge Ordered Location: Home kb Condition: Stable kb Diagnosis - Palpitations kb Followup: kb - With: Emergency Department - When: As needed - Reason: Worsening of condition Followup: kb - With: Private Physician - When: 2 - 3 days - Reason: Recheck today's complaints, Continuance of care, Re-evaluation by your physician Discharge Instructions: - Discharge Summary Sheet kb - Panic Attack, [id number] kb - Palpitations, Purd-[id number] kb Forms: - Medication Reconciliation Form kb - Thank You Letter kb - Antibiotic Education kb - Prescription Opioid Use kb - [email or web address] kb Signatures: Dispatcher [employer] Nikky Babin, DRIVER COURIER-C DRIVER COURIER-Avery Breewr MD MD rn Sotiri, Orest, RN RN os
[2022-10-08 15:04] VITALS: TEMP 98.5; O2SAT 100
[2022-10-08 15:09] VITALS: BP 125/87
--- NOTE | 2022-10-08 15:18 | RAD REPORT ---
EXAM DESCRIPTION: Shanae Single View10/08/2022 2:47 pm CLINICAL HISTORY: PALPITATIONS COMPARISON: No comparisons TECHNIQUE: Portable AP view of the chest. FINDINGS: The lungs are clear. No pneumothorax or effusion. The cardiomediastinal contours are unre markable. IMPRESSION: No acute cardiopulmonary process.
--- NOTE | 2022-10-09 16:18 | EKG ---
Test Date: 2022-10-08 Test Time: 13:31:19 Low Altitude Air Defense Officer: SILVIO MEASUREMENT RESULTS: Intervals: Rate: 101 WA: 172 QRSD: 90 QT: 340 QTc: 440 [place]: P: 54 WA: 172 QRS: 36 T: 54 INTERPRETIVE STATEMENTS: Sinus tachycardia Otherwise normal ECG No previous ECG available for comparison Electronically Signed On 10-09-22 16:16:47 CDT by Jose Jennings
--- NOTE | 2022-10-11 17:19 | EKG ---
Test Date: 2022-10-08 Test Time: 13:29:52 Finance Associate: SILVIO MEASUREMENT RESULTS: Intervals: Rate: 92 RI: 166 QRSD: 90 QT: 344 QTc: 425 [place]: P: 58 RI: 166 QRS: 37 T: 56 INTERPRETIVE STATEMENTS: Normal sinus rhythm Normal ECG No previous ECG available for comparison Electronically Signed On 10-11-22 17:14:18 CDT by Jose Jennings
== END 2022-10-08 14:48 | disposition home or self-care (01) ==
LOC: ER 13:15
DX: R00.2 Palpitations (principal)
CPT/HCPCS: 36415; 71045; 80048; 83735; 83880; 84443; 84484; 85025; 85379; 93005; 99284